=== PATIENT | female | born 1995 | race Caucasian/White ===

== ENCOUNTER 2023-09-23 07:11 | Emergency (ER) | payer OTHER ==
[~2023-09-23] VITALS: Ht 162.6 cm; Wt 54.4 kg
[2023-09-23] MEDS ORDERED: ACETAMINOPHEN ES 500 MG TABLET ONE (08:00)
[2023-09-23] MEDS: ACETAMINOPHEN 325 MG TABLET PO ONE (08:11)
[2023-09-23] MEDS ORDERED: IBUP-1955 PO (09:13)
[2023-09-23 09:23] VITALS: BP 113/60; TEMP 98; O2SAT 100
== END 2023-09-23 09:23 | disposition home or self-care (01) ==
LOC: ER 07:19
DX: S16.1XXA Strain of muscle, fascia and tendon at neck level, initial encounter (principal); S09.8XXA Other specified injuries of head, initial encounter; V43.52XA Car driver injured in collision with other type car in traffic accident, initial encounter; Y93.89 Activity, other specified; Y92.488 Other paved roadways as the place of occurrence of the external cause; Y99.8 Other external cause status
CPT/HCPCS: 70450-TC; 72125-TC